=== PATIENT | male | born 1970 | race Hispanic/Latino ===

== ENCOUNTER 2023-10-24 23:09 | Emergency (ER) | payer BC, OTHER ==
[~2023-10-24] VITALS: Ht 177.8 cm; Wt 82.6 kg
[2023-10-24 23:30] VITALS: PULSE 60; RESP 18; TEMP 98.6
[2023-10-25 01:25] VITALS: BP 145/84; PULSE 84; RESP 18; TEMP 98.3; O2SAT 99
== END 2023-10-25 00:45 | disposition home or self-care (01) ==
LOC: FSED 23:18
DX: R68.83 Chills (without fever) (principal); R45.0 Nervousness
CPT/HCPCS: 36415; 82948; 99283